=== PATIENT | male | born 1975 | race Caucasian/White ===

== ENCOUNTER 2016-11-05 21:29 | Inpatient (IN) | payer OTHER ==
[~2016-11-05] VITALS: Ht 200.7 cm; Wt 148.5 kg
[2016-11-05 23:10] LABS: MCH 29.7 PG (29.0-34.0); MCHC 33.3 G/DL (30.0-36.0); MCV 89.1 FL (86-99); MEAN PLAT.VOLUME 9.9 uM^3 (9.0-12.4); PLATELET COUNT 299 K/uL (156-360); RBC DIS.WIDTH-CV 12.3 % (11.8-14.6); RBC DIS.WIDTH-SD 40.4 % (39-53); RED BLOOD COUNT 4.04 M/uL (4.00-5.50); WHITE BLOOD COUNT 6.9 K/uL (4.1-10.2)
[2016-11-05 23:25] LABS: CHLORIDE 95 mEq/L (99-109); POTASSIUM 4.3 mEq/L (3.7-5.4); SODIUM 130 mEq/L (136-147)
[2016-11-05 23:28] LABS: ANION GAP 12 MEQ/L (2-14)
[2016-11-05 23:29] LABS: TOTAL BILIRUBIN 0.5 mg/dL (0.0-1.0)
[2016-11-05 23:30] LABS: ALKALINE PHOSPHATASE 79 IU/L (3-129)
[2016-11-05 23:32] LABS: UREA NITROGEN (BUN) 19 mg/dL (9-23)
[2016-11-05 23:51] LABS: GFR ESTIMATE (CALCULATED) > 59 mL/min/; GLUCOSE 706 mg/dL (70-99)
[2016-11-06] MEDS ORDERED: OMEPRAZOLE40 M1 PO (00:14)
[2016-11-06 01:40] VITALS: BP 119/81
[2016-11-06 03:55] VITALS: BP 117/57
[2016-11-06 07:49] VITALS: BP 103/61
[2016-11-06 09:07] LABS: POINT-OF-CARE METER ID UU13113702
[2016-11-06 09:40] LABS: MAGNESIUM 1.6 mg/dL (1.3-2.7)
[2016-11-06 09:43] LABS: ANION GAP 10 MEQ/L (2-14)
[2016-11-06 09:44] LABS: TOTAL BILIRUBIN 0.5 mg/dL (0.0-1.0)
[2016-11-06 09:45] LABS: ALKALINE PHOSPHATASE 67 IU/L (3-129)
[2016-11-06 09:46] LABS: GFR ESTIMATE (CALCULATED) > 59 mL/min/
[2016-11-06 09:47] LABS: UREA NITROGEN (BUN) 12 mg/dL (9-23)
[2016-11-06 09:49] LABS: CHLORIDE 106 mEq/L (99-109); GLUCOSE 315 mg/dL (70-99); MCH 30.1 PG (29.0-34.0); MCHC 33.2 G/DL (30.0-36.0); MCV 90.7 FL (86-99); MEAN PLAT.VOLUME 10.1 uM^3 (9.0-12.4); PLATELET COUNT 269 K/uL (156-360); RBC DIS.WIDTH-CV 12.3 % (11.8-14.6); RBC DIS.WIDTH-SD 40.2 % (39-53); RED BLOOD COUNT 3.75 M/uL (4.00-5.50); SODIUM 140 mEq/L (136-147); WHITE BLOOD COUNT 6.5 K/uL (4.1-10.2)
[2016-11-06 10:02] LABS: Estimated Average Glucose 395 mg/dL (70-123)
[2016-11-06 10:10] LABS: HEMOGLOBIN A1c (GLYCOHEMOGLOB) 15.4 % HGB (Below 5.7)
[2016-11-06 11:15] VITALS: BP 131/68
[2016-11-06 11:22] LABS: EOSINOPHIL (%) 1.8 % (0-5); EOSINOPHIL COUNT 0.1 K/uL (0-0.3); HEMATOLOGY COMMENT 1 SMEAR COMPATIBLE; IMMATURE GRANULOCYTE (%) 0.6 % (0.0-0.7); INSTRUMENT ABS NEUTROPHIL CT 3.7 K/uL; LYMPHOCYTE COUNT 1.8 K/uL (1.0-2.8); MONOCYTE (%) 11.2 % (3-12); MONOCYTE COUNT 0.7 K/uL (0-0.8); NEUTROPHIL (%) 57.5 % (45-76); NEUTROPHIL COUNT 3.7 K/uL (1.8-6.4)
[2016-11-06 11:28] LABS: ADD MIUA? NO; BILIRUBIN NEGATIVE; BLOOD NEGATIVE; COLOR YELLOW ((YELLOW)); GLUCOSE (STRIP) >=500; KETONES 20; LEUKOCYTES NEGATIVE; NITRITE NEGATIVE; PROTEIN (STRIP) NEGATIVE; SPECIFIC GRAVITY 1.028 (1.000-1.030); UCUL ADDED? NO; UROBILINOGEN 0.2 MG/DL (0.2-1.0)
[2016-11-06 14:51] LABS: POINT-OF-CARE USER ID AHSRSCSLC11
[2016-11-06 16:00] LABS: POINT-OF-CARE METER ID UU13113675
[2016-11-06 20:07] LABS: POINT-OF-CARE USER ID 608261316
[2016-11-06 23:59] LABS: POINT-OF-CARE METER ID UU13113725
[2016-11-07] VITALS (7 sets, daily range): BP systolic 117–152; BP diastolic 63–86
[2016-11-07 06:36] LABS: POINT-OF-CARE METER ID UU13113725
[2016-11-07 11:10] LABS: POINT-OF-CARE METER ID UU13113725
[2016-11-07 13:50] LABS: POINT-OF-CARE METER ID UU13113725
[2016-11-07 16:54] LABS: POINT-OF-CARE METER ID UU13113725
[2016-11-07 18:51] LABS: CHLORIDE 104 mEq/L (99-109); POTASSIUM 4.2 mEq/L (3.7-5.4); SODIUM 137 mEq/L (136-147)
[2016-11-07 18:52] LABS: GLUCOSE 392 mg/dL (70-99)
[2016-11-07 18:54] LABS: ANION GAP 13 MEQ/L (2-14)
[2016-11-07 18:56] LABS: GFR ESTIMATE (CALCULATED) 19 mL/min/
[2016-11-07 19:01] LABS: UREA NITROGEN (BUN) 25 mg/dL (9-23)
[2016-11-08 00:17] LABS: POINT-OF-CARE METER ID UU13113725; POINT-OF-CARE USER ID 608261316
[2016-11-08 03:25] VITALS: BP 96/61
[2016-11-08 03:28] LABS: POINT-OF-CARE METER ID UU13113725
[2016-11-08 06:06] LABS: POINT-OF-CARE METER ID UU13113725
[2016-11-08 07:16] VITALS: BP 131/72
[2016-11-08 07:44] LABS: ADD MIUA? YES; BILIRUBIN NEGATIVE; BLOOD SMALL; COLOR STRAW ((YELLOW)); GLUCOSE (STRIP) 150; KETONES NEGATIVE; LEUKOCYTES NEGATIVE; NITRITE NEGATIVE; PROTEIN (STRIP) 100; SPECIFIC GRAVITY 1.006 (1.000-1.030); UROBILINOGEN 0.2 MG/DL (0.2-1.0)
[2016-11-08 07:58] LABS: BACTERIA RARE /HPF; EPITHELIAL CELLS RARE /HPF; MUCUS TRACE /LPF; RED BLOOD CELLS 0-5 /HPF (0-5)
[2016-11-08 08:11] LABS: HEMATOCRIT 34.7 % (38.0-50.0); MCH 30.7 PG (29.0-34.0); MCHC 33.1 G/DL (30.0-36.0); MCV 92.5 FL (86-99); MEAN PLAT.VOLUME 10.3 uM^3 (9.0-12.4); PLATELET COUNT 276 K/uL (156-360); RBC DIS.WIDTH-CV 12.5 % (11.8-14.6); RBC DIS.WIDTH-SD 41.8 % (39-53); RED BLOOD COUNT 3.75 M/uL (4.00-5.50)
[2016-11-08 08:22] LABS: ANION GAP 11 MEQ/L (2-14); CHLORIDE 103 MEQ/L (99-109); GFR ESTIMATE (CALCULATED) 14 mL/min/; POTASSIUM 3.5 MEQ/L (3.7-5.4); SAMPLE HEMOLYSIS CHECK 0; SAMPLE ICTERIC CHECK 0; SAMPLE LIPEMIA CHECK 0; SODIUM 138 MEQ/L (136-147); UREA NITROGEN (BUN) 29 mg/dL (9-23)
[2016-11-08 08:26] LABS: GLUCOSE 148 mg/dL (70-99)
[2016-11-08 08:56] LABS: UR CREATININE CONCENTRATION 44.6 MG/DL
[2016-11-08 10:37] LABS: C3 COMPLEMENT 146 MG/DL (58-170); C4 COMPLEMENT 33 MG/DL (10-40)
[2016-11-08 11:55] VITALS: BP 127/71
[2016-11-08 15:26] VITALS: BP 125/75
[2016-11-08 15:37] LABS: UR CREATININE CONCENTRATION 45.5 MG/DL
[2016-11-08 19:15] VITALS: BP 152/89
[2016-11-08 22:02] LABS: POINT-OF-CARE METER ID UU13113725
[2016-11-08 23:02] VITALS: BP 142/83
[2016-11-09 03:48] VITALS: BP 139/62
[2016-11-09 07:49] VITALS: BP 137/81
[2016-11-09 07:50] LABS: HEMATOCRIT 32.6 % (38.0-50.0); MCHC 33.1 G/DL (30.0-36.0); MCV 90.6 FL (86-99); MEAN PLAT.VOLUME 10.1 uM^3 (9.0-12.4); PLATELET COUNT 262 K/uL (156-360); RBC DIS.WIDTH-CV 12.3 % (11.8-14.6); RBC DIS.WIDTH-SD 40.7 % (39-53)
[2016-11-09 09:11] LABS: ALKALINE PHOSPHATASE 102 IU/L (3-129); ANION GAP 13 MEQ/L (2-14); CHLORIDE 105 MEQ/L (99-109); GFR ESTIMATE (CALCULATED) 9 mL/min/; GLUCOSE 137 mg/dL (70-99); SAMPLE HEMOLYSIS CHECK 0; SAMPLE ICTERIC CHECK 0; SAMPLE LIPEMIA CHECK 0; SODIUM 141 MEQ/L (136-147); TOTAL BILIRUBIN 0.3 MG/DL (0.0-1.0); UREA NITROGEN (BUN) 35 mg/dL (9-23)
[2016-11-09 12:05] VITALS: BP 138/81
[2016-11-09 16:43] VITALS: BP 125/75
[2016-11-10 00:37] VITALS: BP 133/83
[2016-11-10 06:31] LABS: HEMATOCRIT 30.7 % (38.0-50.0); MCH 29.8 PG (29.0-34.0); MCHC 32.6 G/DL (30.0-36.0); MCV 91.4 FL (86-99); MEAN PLAT.VOLUME 9.9 uM^3 (9.0-12.4); PLATELET COUNT 251 K/uL (156-360); RBC DIS.WIDTH-CV 12.4 % (11.8-14.6); RBC DIS.WIDTH-SD 41.4 % (39-53); RED BLOOD COUNT 3.36 M/uL (4.00-5.50); WHITE BLOOD COUNT 8.3 K/uL (4.1-10.2)
[2016-11-10 07:00] VITALS: BP 134/85
[2016-11-10 09:03] LABS: ANION GAP 13 MEQ/L (2-14); CHLORIDE 108 MEQ/L (99-109); GFR ESTIMATE (CALCULATED) 7 mL/min/; GLUCOSE 136 mg/dL (70-99); POTASSIUM 4.1 MEQ/L (3.7-5.4); SAMPLE HEMOLYSIS CHECK 0; SAMPLE ICTERIC CHECK 0; SAMPLE LIPEMIA CHECK 0; SODIUM 142 MEQ/L (136-147); UREA NITROGEN (BUN) 40 mg/dL (9-23)
[2016-11-10 11:16] LABS: POINT-OF-CARE METER ID UU13113725
[2016-11-10 13:40] VITALS: BP 149/88
[2016-11-10 14:51] VITALS: BP 136/80
[2016-11-11 00:03] VITALS: BP 140/97
[2016-11-11 06:09] LABS: MCH 30.6 PG (29.0-34.0); MCHC 33.2 G/DL (30.0-36.0); MEAN PLAT.VOLUME 9.8 uM^3 (9.0-12.4); PLATELET COUNT 271 K/uL (156-360); RBC DIS.WIDTH-CV 12.5 % (11.8-14.6); RBC DIS.WIDTH-SD 41.7 % (39-53); RED BLOOD COUNT 3.37 M/uL (4.00-5.50); WHITE BLOOD COUNT 8.4 K/uL (4.1-10.2)
[2016-11-11 06:36] LABS: ANION GAP 13 MEQ/L (2-14); CHLORIDE 109 MEQ/L (99-109); GFR ESTIMATE (CALCULATED) 6 mL/min/; GLUCOSE 153 mg/dL (70-99); POTASSIUM 4.5 MEQ/L (3.7-5.4); SAMPLE HEMOLYSIS CHECK 0; SAMPLE ICTERIC CHECK 0; SAMPLE LIPEMIA CHECK 0; SODIUM 142 MEQ/L (136-147); UREA NITROGEN (BUN) 41 mg/dL (9-23)
[2016-11-11 06:37] LABS: ANION GAP 13 MEQ/L (2-14); CHLORIDE 108 MEQ/L (99-109); GFR ESTIMATE (CALCULATED) 6 mL/min/; GLUCOSE 157 mg/dL (70-99); POTASSIUM 4.4 MEQ/L (3.7-5.4); SAMPLE HEMOLYSIS CHECK 0; SAMPLE ICTERIC CHECK 0; SAMPLE LIPEMIA CHECK 0; SODIUM 142 MEQ/L (136-147); UREA NITROGEN (BUN) 41 mg/dL (9-23)
[2016-11-11 07:11] VITALS: BP 145/80
[2016-11-11 13:49] VITALS: BP 151/87
[2016-11-11 15:36] VITALS: BP 162/93
[2016-11-11 16:37] LABS: CREATINE KINASE 21 IU/L (1-294)
[2016-11-11 19:25] VITALS: BP 154/88
[2016-11-11 23:06] VITALS: BP 165/90
[2016-11-12 03:00] VITALS: BP 155/85
[2016-11-12 07:05] VITALS: BP 120/57
[2016-11-12 07:34] LABS: ANION GAP 16 MEQ/L (2-14); CHLORIDE 111 MEQ/L (99-109); GFR ESTIMATE (CALCULATED) 6 mL/min/; POTASSIUM 4.5 MEQ/L (3.7-5.4); SAMPLE HEMOLYSIS CHECK 0; SAMPLE ICTERIC CHECK 0; SAMPLE LIPEMIA CHECK 0; SODIUM 144 MEQ/L (136-147); UREA NITROGEN (BUN) 45 mg/dL (9-23)
[2016-11-12 07:51] LABS: GLUCOSE 78 mg/dL (70-99)
[2016-11-12 12:11] VITALS: BP 144/83
[2016-11-12 16:14] VITALS: BP 171/102
[2016-11-12 21:06] LABS: POINT-OF-CARE METER ID UU13113725
[2016-11-12 23:55] VITALS: BP 129/72
[2016-11-13 06:24] LABS: POINT-OF-CARE METER ID UU13113725
[2016-11-13 07:29] LABS: HEMATOCRIT 33.6 % (38.0-50.0); MCH 30.3 PG (29.0-34.0); MCHC 32.4 G/DL (30.0-36.0); MCV 93.3 FL (86-99); MEAN PLAT.VOLUME 9.6 uM^3 (9.0-12.4); PLATELET COUNT 294 K/uL (156-360); RBC DIS.WIDTH-CV 12.4 % (11.8-14.6); RBC DIS.WIDTH-SD 42.2 % (39-53); WHITE BLOOD COUNT 9.2 K/uL (4.1-10.2)
[2016-11-13 08:00] LABS: ANION GAP 15 MEQ/L (2-14); CHLORIDE 109 MEQ/L (99-109); GFR ESTIMATE (CALCULATED) 5 mL/min/; POTASSIUM 4.6 MEQ/L (3.7-5.4); SAMPLE HEMOLYSIS CHECK 0; SAMPLE ICTERIC CHECK 0; SAMPLE LIPEMIA CHECK 0; SODIUM 142 MEQ/L (136-147); UREA NITROGEN (BUN) 47 mg/dL (9-23)
[2016-11-13 08:03] LABS: GLUCOSE 128 mg/dL (70-99)
[2016-11-13 11:11] LABS: POINT-OF-CARE METER ID UU13113725
[2016-11-13 11:42] LABS: HBSG INDEX 0.21; HPCA INDEX 0.16
[2016-11-13 11:43] LABS: AHBS INDEX 1.09; HEPATITIS B SURFACE ANTIBODY Nonreactive
[2016-11-14] VITALS: BP 116/20
[2016-11-14 06:45] LABS: EOSINOPHIL (%) 2.9 % (0-5); EOSINOPHIL COUNT 0.2 K/uL (0-0.3); HEMATOCRIT 31.6 % (38.0-50.0); IMMATURE GRANULOCYTE COUNT 0.1 K/uL; INSTRUMENT ABS NEUTROPHIL CT 4.8 K/uL; LYMPHOCYTE COUNT 2.2 K/uL (1.0-2.8); MCH 30.5 PG (29.0-34.0); MCHC 32.9 G/DL (30.0-36.0); MCV 92.7 FL (86-99); MEAN PLAT.VOLUME 9.7 uM^3 (9.0-12.4); MONOCYTE (%) 8.3 % (3-12); MONOCYTE COUNT 0.7 K/uL (0-0.8); NEUTROPHIL (%) 59.9 % (45-76); NEUTROPHIL COUNT 4.8 K/uL (1.8-6.4); PLATELET COUNT 279 K/uL (156-360); RBC DIS.WIDTH-CV 12.6 % (11.8-14.6); RBC DIS.WIDTH-SD 42.3 % (39-53); RED BLOOD COUNT 3.41 M/uL (4.00-5.50)
[2016-11-14 07:07] LABS: ANION GAP 11 MEQ/L (2-14); CHLORIDE 110 MEQ/L (99-109); GFR ESTIMATE (CALCULATED) 6 mL/min/; GLUCOSE 114 mg/dL (70-99); POTASSIUM 4.5 MEQ/L (3.7-5.4); SAMPLE HEMOLYSIS CHECK 0; SAMPLE ICTERIC CHECK 0; SAMPLE LIPEMIA CHECK 0; SODIUM 144 MEQ/L (136-147); UREA NITROGEN (BUN) 37 mg/dL (9-23)
[2016-11-14 16:19] VITALS: BP 150/98
[2016-11-14 20:56] LABS: POINT-OF-CARE METER ID UU13113725
[2016-11-14 23:34] VITALS: BP 143/82
[2016-11-15 01:10] VITALS: BP 120/65
[2016-11-15 01:13] VITALS: BP 136/89
[2016-11-15 05:46] LABS: POINT-OF-CARE METER ID UU13113725
[2016-11-15 07:33] VITALS: BP 154/86
[2016-11-15 07:39] LABS: HEMATOCRIT 31.1 % (38.0-50.0); MCHC 32.5 G/DL (30.0-36.0); MCV 92.3 FL (86-99); MEAN PLAT.VOLUME 9.7 uM^3 (9.0-12.4); PLATELET COUNT 257 K/uL (156-360); RBC DIS.WIDTH-CV 12.5 % (11.8-14.6); RBC DIS.WIDTH-SD 41.6 % (39-53); RED BLOOD COUNT 3.37 M/uL (4.00-5.50); WHITE BLOOD COUNT 8.6 K/uL (4.1-10.2)
[2016-11-15 07:52] LABS: ANION GAP 11 MEQ/L (2-14); CHLORIDE 106 MEQ/L (99-109); POTASSIUM 4.1 MEQ/L (3.7-5.4); SAMPLE HEMOLYSIS CHECK 0; SAMPLE ICTERIC CHECK 0; SAMPLE LIPEMIA CHECK 0; SODIUM 142 MEQ/L (136-147)
[2016-11-15 08:05] LABS: GFR ESTIMATE (CALCULATED) 8 mL/min/; UREA NITROGEN (BUN) 34 mg/dL (9-23)
[2016-11-15 08:06] LABS: GLUCOSE 181 mg/dL (70-99)
[2016-11-15 11:14] VITALS: BP 141/67
[2016-11-15 11:17] LABS: POINT-OF-CARE METER ID UU13113725
[2016-11-15 15:46] VITALS: BP 125/73
[2016-11-15 15:52] LABS: POINT-OF-CARE METER ID UU13113725
[2016-11-15 19:35] VITALS: BP 134/76
[2016-11-16 00:23] VITALS: BP 139/78
[2016-11-16 03:47] VITALS: BP 143/90
[2016-11-16 07:20] VITALS: BP 138/85
[2016-11-16 07:38] LABS: ANION GAP 11 MEQ/L (2-14); CHLORIDE 106 MEQ/L (99-109); GFR ESTIMATE (CALCULATED) 8 mL/min/; POTASSIUM 3.9 MEQ/L (3.7-5.4); SAMPLE HEMOLYSIS CHECK 0; SAMPLE ICTERIC CHECK 0; SAMPLE LIPEMIA CHECK 0; SODIUM 143 MEQ/L (136-147); UREA NITROGEN (BUN) 30 mg/dL (9-23)
[2016-11-16 07:39] LABS: GLUCOSE 94 mg/dL (70-99)
[2016-11-16 07:51] LABS: POINT-OF-CARE METER ID UU13113725
[2016-11-16 15:49] VITALS: BP 113/57; BP 132/78
[2016-11-16 16:26] LABS: POINT-OF-CARE METER ID UU13113725
[2016-11-16 21:22] LABS: POINT-OF-CARE METER ID UU13113725
[2016-11-16 22:52] VITALS: BP 144/81
[2016-11-17 07:53] LABS: ANION GAP 12 MEQ/L (2-14); CHLORIDE 107 MEQ/L (99-109); GFR ESTIMATE (CALCULATED) 7 mL/min/; GLUCOSE 107 mg/dL (70-99); POTASSIUM 3.9 MEQ/L (3.7-5.4); SAMPLE HEMOLYSIS CHECK 0; SAMPLE ICTERIC CHECK 0; SAMPLE LIPEMIA CHECK 0; SODIUM 144 MEQ/L (136-147); UREA NITROGEN (BUN) 35 mg/dL (9-23)
[2016-11-17 08:07] VITALS: BP 116/63
[2016-11-17 11:52] LABS: POINT-OF-CARE METER ID UU13113725
[2016-11-17 18:44] VITALS: BP 143/89
[2016-11-17 23:21] VITALS: BP 159/87
[2016-11-18] VITALS (7 sets, daily range): BP systolic 119–153; BP diastolic 56–88
[2016-11-18 08:05] LABS: ANION GAP 14 MEQ/L (2-14); CHLORIDE 105 MEQ/L (99-109); GFR ESTIMATE (CALCULATED) 7 mL/min/; POTASSIUM 4.1 MEQ/L (3.7-5.4); SAMPLE HEMOLYSIS CHECK 0; SAMPLE ICTERIC CHECK 0; SAMPLE LIPEMIA CHECK 0; SODIUM 143 MEQ/L (136-147); UREA NITROGEN (BUN) 44 mg/dL (9-23)
[2016-11-18 08:06] LABS: GLUCOSE 209 mg/dL (70-99)
[2016-11-18 11:13] LABS: POINT-OF-CARE METER ID UU13113725
[2016-11-18 21:06] LABS: POINT-OF-CARE METER ID UU13113725
[2016-11-19 02:35] VITALS: BP 116/56
[2016-11-19 05:35] LABS: POINT-OF-CARE METER ID UU13113725
[2016-11-19 09:16] LABS: BASOPHIL COUNT 0.1 K/uL (0-0.1); EOSINOPHIL (%) 2.4 % (0-5); EOSINOPHIL COUNT 0.2 K/uL (0-0.3); HEMATOCRIT 28.9 % (38.0-50.0); IMMATURE GRANULOCYTE (%) 0.8 % (0.0-0.7); IMMATURE GRANULOCYTE COUNT 0.1 K/uL; INSTRUMENT ABS NEUTROPHIL CT 6.3 K/uL; LYMPHOCYTE COUNT 2.1 K/uL (1.0-2.8); MCH 29.7 PG (29.0-34.0); MCHC 32.2 G/DL (30.0-36.0); MCV 92.3 FL (86-99); MEAN PLAT.VOLUME 9.6 uM^3 (9.0-12.4); MONOCYTE COUNT 0.7 K/uL (0-0.8); NEUTROPHIL (%) 67.2 % (45-76); NEUTROPHIL COUNT 6.3 K/uL (1.8-6.4); PLATELET COUNT 233 K/uL (156-360); RBC DIS.WIDTH-CV 12.6 % (11.8-14.6); RBC DIS.WIDTH-SD 42.2 % (39-53); RED BLOOD COUNT 3.13 M/uL (4.00-5.50); WHITE BLOOD COUNT 9.4 K/uL (4.1-10.2)
[2016-11-19 09:47] LABS: ANION GAP 11 MEQ/L (2-14); CHLORIDE 103 MEQ/L (99-109); GFR ESTIMATE (CALCULATED) 8 mL/min/; GLUCOSE 172 mg/dL (70-99); POTASSIUM 3.9 MEQ/L (3.7-5.4); SAMPLE HEMOLYSIS CHECK 0; SAMPLE ICTERIC CHECK 0; SAMPLE LIPEMIA CHECK 0; SODIUM 143 MEQ/L (136-147); UREA NITROGEN (BUN) 47 mg/dL (9-23)
[2016-11-19 11:47] LABS: POINT-OF-CARE METER ID UU13113725
[2016-11-19 12:00] VITALS: BP 135/82
[2016-11-19 16:09] VITALS: BP 130/71
[2016-11-19 19:25] VITALS: BP 140/86
[2016-11-19 23:20] VITALS: BP 144/90
[2016-11-20 06:39] VITALS: BP 128/70
[2016-11-20 07:45] LABS: ANION GAP 14 MEQ/L (2-14); CHLORIDE 105 MEQ/L (99-109); GFR ESTIMATE (CALCULATED) 11 mL/min/; POTASSIUM 3.9 MEQ/L (3.7-5.4); SAMPLE HEMOLYSIS CHECK 0; SAMPLE ICTERIC CHECK 0; SAMPLE LIPEMIA CHECK 0; SODIUM 144 MEQ/L (136-147); UREA NITROGEN (BUN) 44 mg/dL (9-23)
[2016-11-20 07:47] LABS: GLUCOSE 300 mg/dL (70-99)
[2016-11-20 11:46] LABS: POINT-OF-CARE METER ID UU13113725
== END 2016-11-20 13:50 | disposition home or self-care (01) | DRG 603 ==
LOC: EXP 21:29 → EME 21:29 → EDOF 11-06 00:12 → 5WEST 11-06 01:21 → 5EAST 11-06 16:01 → 5WEST 11-06 16:01 → 5EAST 11-06 17:34
PROVIDERS: Hospitalist; Internal Medicine; Internal Medicine Nephrology; Physician Assistant; Surgery
PROC: 0H9JXZZ Drainage of Left Upper Leg Skin, External Approach (ICD-10-PCS; principal; 2016-11-06)
PROC: 05HM33Z Insertion of Infusion Device into Right Internal Jugular Vein, Percutaneous Approach (ICD-10-PCS; principal; 2016-11-06)
PROC: B543ZZA Ultrasonography of Right Jugular Veins, Guidance (ICD-10-PCS; principal; 2016-11-06)
PROC: 5A1D60Z (ICD-10-PCS; 2016-11-13)
DX: L02.416 Cutaneous abscess of left lower limb (principal); N17.9 Acute kidney failure, unspecified; N14.1 Nephropathy induced by other drugs, medicaments and biological substances; L91.8 Other hypertrophic disorders of the skin; E11.9 Type 2 diabetes mellitus without complications; E83.39 Other disorders of phosphorus metabolism; E87.2 Acidosis; K21.9 Gastro-esophageal reflux disease without esophagitis; E66.9 Obesity, unspecified; Z68.39 Body mass index [BMI] 39.0-39.9, adult; Z91.14 Patient's other noncompliance with medication regimen; Z79.4 Long term (current) use of insulin
CPT/HCPCS: 71010; 76770; 80048; 80048 91; 80053; 80069; 80202; 81003; 82010; 82436; 82550; 82565; 82570; 82948; 83036; 83735; 83880; 84100; 84133; 84156; 84300; 84520; 85025; 85027; 86063; 86160; 86706; 86803; 87070; 87075; 87077; 87186; 87205; 87340; 88304; 89190; 94799; 99281; 99285; C1752; J0295; J1170; J1644; J1650; J1815; J1885; J1940; J2250; J2270; J2405; J2543; J3010; J3370; J7030; J7040; J7050; J7120; S0020